=== PATIENT | male | born 1980 | race Caucasian/White ===

== ENCOUNTER 2021-07-17 03:32 | Emergency (ER) | payer MEDICAID, OTHER ==
[~2021-07-17] VITALS: Ht 190.5 cm; Wt 90.0 kg
[~2021-07-17 03:32] MED LIST: DOXY-1 PO
[2021-07-17 03:42] VITALS: BP 146/84
[2021-07-17] MEDS ORDERED: HYDR-3965 PO (03:59)
[2021-07-17] MEDS ORDERED: AMOX-422 PO (03:59)
== END 2021-07-17 05:02 | disposition home or self-care (01) ==
LOC: ER 03:32
DX: K04.7 Periapical abscess without sinus (principal); K02.9 Dental caries, unspecified; K08.89 Other specified disorders of teeth and supporting structures; Z88.5 Allergy status to narcotic agent; Z79.2 Long term (current) use of antibiotics
CPT/HCPCS: 99283